=== PATIENT | male | born 1990 | race Caucasian/White ===

== ENCOUNTER 2025-01-08 18:03 | Emergency (ER) | payer BC ==
[~2025-01-08] VITALS: Ht 193 cm; Wt 161.3 kg
[2025-01-08 18:08] VITALS: PULSE 96; RESP 20; TEMP 98.1; O2SAT 97
== END 2025-01-08 18:23 | disposition home or self-care (01) ==
LOC: FSED 18:18
DX: H92.02 Otalgia, left ear (principal); R51.9 Headache, unspecified; E29.1 Testicular hypofunction
CPT/HCPCS: 99284